=== PATIENT | male | born 1945 | race Caucasian/White ===

== ENCOUNTER 2020-11-17 06:27 | Day surgery (SDC) | payer MEDICARE, OTHER ==
[2020-11-17] MEDS ORDERED: Dextrose 5%-Lactated Ringers 1,000 ML IV SCH (07:00)
[2020-11-17] MEDS ORDERED: Midazolam 1 MG/ML 2 ML SDV ONE (07:06)
[2020-11-17] MEDS ORDERED: fentaNYL 100 MCG/2 ML SDV ONE (07:06)
[2020-11-17] MEDS ORDERED: Propofol 200 MG/20 ML SDV ONE (07:06)
--- NOTE | 2020-12-06 13:39 | OR ---
DATE OF PROCEDURE: 11/17/2020 SURGEON: Markie Child MD PREOPERATIVE DIAGNOSIS: History of right colon carcinoma. POSTOPERATIVE DIAGNOSIS: Recurrent colon polyp involving the sigmoid colon. OPERATIVE PROCEDURE: Flexible colonoscopy with: 1. Polypectomy by snare technique. 2. Injection of Evelyn ink into the submucosa adjacent to polypectomy site. INDICATION FOR PROCEDURE: This is a 74-year-old male presenting for followup colonoscopy. 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 Plan is to proceed with a flexible colonoscopy with biopsies and polypectomy as indicated. Potential risks including bleeding and perforation were discussed, and the patient wishes to proceed. DETAILS OF PROCEDURE: The patient was taken to the operating room and placed in a left lateral decubitus position. IV sedation was administered, after which the initial digital rectal exam was performed which was unremarkable. Colonoscope was then passed into the rectum with retroflexion revealing uncomplicated hemorrhoidal columns. Scope was eventually passed to the level of the ileocolic anastomosis involving the proximal transverse colon. Prep was quite good with only small liquid stool present. There were no areas of diverticular disease or colitis. A single polyp was identified in the sigmoid colon, which was being around 12 mm. This was removed with what appeared to be a clear margin at the base with a cautery snare technique and retrieved. After the polyp has been retrieved, the scope was then re-introduced and Evelyn ink was injected into the submucosa adjacent to the polypectomy site. In any event, this came back as malignancy. 4 mL of the Evelyn ink was injected, and at that point, the scope was withdrawn. No additional abnormalities were noted. The procedure concluded. Assuming that the present examination shows a benign polyp, a followup colonoscopy should be in the range of 2 to 3 years. Markie Child MD /[id number]
== END 2020-11-17 10:00 | disposition home or self-care (01) ==
LOC: JP.SDS 06:27
PROVIDERS: ATTEND Surgery
DX: Z12.11 Encounter for screening for malignant neoplasm of colon (principal); D12.5 Benign neoplasm of sigmoid colon; K63.89 Other specified diseases of intestine; K64.9 Unspecified hemorrhoids; E78.5 Hyperlipidemia, unspecified; E11.9 Type 2 diabetes mellitus without complications; Z85.038 Personal history of other malignant neoplasm of large intestine; Z95.0 Presence of cardiac pacemaker
CPT/HCPCS: 88305; J2250; J2704; J3010; J7121

== ENCOUNTER 2022-11-21 05:57 | Day surgery (SDC) | payer MEDICARE, OTHER ==
[2022-11-21] MEDS ORDERED: Dextrose 5%-Lactated Ringers 1,000 ML IV SCH (06:30)
[2022-11-21] MEDS ORDERED: fentaNYL 50 MCG/ML SDV ONE (06:52)
[2022-11-21] MEDS ORDERED: Propofol 200 MG/20 ML SDV ONE (06:52)
== END 2022-11-21 08:58 | disposition home or self-care (01) ==
LOC: JP.SDS 05:57
PROVIDERS: ATTEND Surgery
DX: Z12.11 Encounter for screening for malignant neoplasm of colon (principal); D12.5 Benign neoplasm of sigmoid colon; K64.9 Unspecified hemorrhoids; I48.91 Unspecified atrial fibrillation; Z85.038 Personal history of other malignant neoplasm of large intestine; Z90.49 Acquired absence of other specified parts of digestive tract; Z98.0 Intestinal bypass and anastomosis status
CPT/HCPCS: 36415; 85610; 88305; J2704; J3010; J7121